=== PATIENT | female | born 2000 | race Caucasian/White ===

== ENCOUNTER 2022-07-28 13:51 | Outpatient (CLI) | payer MEDICAID ==
[2022-07-28 14:14] LABS: HCT - HEMATOCRIT 44.3 % (37.0-47.0); HGB - HEMOGLOBIN 14.3 g/dL (12.0-16.0); MEAN CORPUSCULAR HEMOGLOBIN 29.4 pg (27.0-31.0); MEAN CORPUSCULAR HGB CONC 32.3 g/dL (32.0-36.0); MEAN CORPUSCULAR VOLUME 91.2 fL (81.0-99.0); MEAN PLATELET VOLUME 9.6 fL (7.9-10.8); RED BLOOD COUNT 4.86 10^6/uL (4.20-5.40); RED CELL DISTRIBUTION WIDTH 13.2 % (12.0-15.0); WHITE BLOOD COUNT 7.2 x10^3/uL (4.8-10.8)
[2022-07-28 14:46] LABS: THYROID STIMULATING HORMONE 0.64 uIU/mL (0.34-5.60)
[2022-07-28 14:52] LABS: PROLACTIN 4.43 ng/mL
== END 2022-07-28 13:52 | disposition home or self-care (01) ==
LOC: LAB 13:51
PROVIDERS: ATTEND Obstetrics & Gynecology
DX: N91.1 Secondary amenorrhea (principal)
CPT/HCPCS: 36415; 83498; 84146; 84270; 84403; 84443; 85027

== ENCOUNTER 2022-08-04 10:29 | Outpatient (CLI) | payer MEDICAID ==
--- NOTE | 2022-08-04 15:32 | Ultrasound Report ---
PROCEDURE: Pelvic w/Transvaginal INDICATIONS: SECONDARY AMENORRHEA TECHNIQUE: Real-time scanning was performed of the pelvic organs, with image documentation. Additional endovagi nal scanning was necessary due to incomplete visualization of the adnexal and endometrial structures by transabdominal scanning. COMPARISON: None. FINDINGS: Uterus: Uterus is anteverted and normal in size at 7.8 x 4.8 x 3.9 cm. The myometrium is heterogene ous. The endometrium measures 9.5 mm in combined thickness. Nabothian cysts are noted. Ovaries: The right ovary measures 4.3 x 3.3 x 2.7 cm, with a calculated ovarian volume of 20 cc. Th e left ovary measures 4.0 x 2.6 x 1.9 cm, with a calculated ovarian volume of 10.2 cc. Simple appeari ng right ovarian cysts are noted the largest measuring 2.1 cm. Other: No pathologic free abdominal o r pelvic fluid. IMPRESSION: Simple right ovarian cyst. Reviewed by: Cat Curry MD on 08/04/2022 3:31 PM PDT Approved by: Cat Curry MD on 08/04/2022 3:31 PM PDT Station ID: [id number]
== END 2022-08-04 10:30 | disposition home or self-care (01) ==
LOC: DI 10:29
PROVIDERS: ATTEND Obstetrics & Gynecology
DX: N91.1 Secondary amenorrhea (principal); N83.291 Other ovarian cyst, right side